=== PATIENT | male | born 1975 | race Caucasian/White ===

== ENCOUNTER 2017-03-18 05:24 | Emergency (ER) | payer OTHER ==
[~2017-03-18] VITALS: Ht 170.2 cm; Wt 81.6 kg
[2017-03-18 05:36] VITALS: BP 136/91
[2017-03-18] MEDS ORDERED: IBUPROFEN 600 MG TABLET. PO ONE ×2 (06:38→07:00)
--- NOTE | 2017-03-18 07:06 | RAD ---
Left foot, 3 views, 03/18/2017: History: Injury, foot pain No fracture or dislocation is identified. There is mild spurring at the midfoot level. There is moderate subcutaneous edema. IMPRESSION: No acute bony abnormality is detected.
--- NOTE | 2017-03-18 07:38 | ED.ADGEN ---
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 Patient states he was climbing up to trailer and pushed off this last foot and felt sudden pain, swelling on his left lateral mid foot. Pain is worse with palpation and weightbearing. No numbness or weakness. No other acute symptoms or complaints. Review of Systems Review of Systems ROS as per HPI Current Medications Current Medications Current Medications Medications (Trade) Dose Ordered Sig/Fatou Start Time Stop Time Status Last Admin Dose Admin Ibuprofen (Motrin) 600 mg STK-MED ONCE 03/18/17 06:38 03/18/17 06:39 DC Allergies Allergies Allergies Coded Allergies Type Severity Reaction Last Updated Verified No Known Drug Allergies 03/18/17 No Physical Exam Physical Exam Constitutional: Well developed, well nourished, no acute distress, non-toxic appearance. Neuro: L foot, no motor weakness or loss of sensation. Extremities: Left foot, no deformities. Tenderness, soft tissue swelling over later midfoot. Current Patient Data Vital Signs Vital Signs Date Time Temp Pulse Resp B/P (MAP) Pulse Ox O2 Delivery O2 Flow Rate FiO2 03/18/17 05:36 98.8 95 16 136/91 (106) 94 Room Air 98.8 EKG EKG [] Radiology/Procedures Radiology/Procedures [Left foot XR: No facture detected. ] Course & Med Decision Making Course & Med Decision Making Pertinent Labs and Imaging studies reviewed. (See chart for details) [Orhto shoe with work comp follow up] Dragon Disclaimer Dragon Disclaimer This electronic medical record was generated, in whole or in part, using a voice recognition dictation system. IRWIN COHEN DO Mar 18, 2017 07:37
== END 2017-03-18 06:50 | disposition home or self-care (01) ==
LOC: ER 05:24
DX: M79.672 Pain in left foot (principal); M79.89 Other specified soft tissue disorders
CPT/HCPCS: 73630; 99284